=== PATIENT | male | born 1945 | race Caucasian/White ===

== ENCOUNTER 2018-02-07 17:39 | Emergency (ER) | payer MEDICARE ==
[2018-02-07] MEDS ORDERED: cloNIDine TAB* 0.1 MG PO ONE ×2 (18:44→19:51)
[2018-02-07] MEDS ORDERED: cloNIDine TAB* 0.1 MG ONE (18:50)
--- NOTE | 2018-02-07 18:51 | UC ---
General HPI - HPI Summary HPI Summary: c/o weakness and nausea for the past week with decreased apetite. Denies vomiting, abdominal pain or diarrhea, chills or vomiting. States he has been eating less because he feels queasy. He denies any changes in diet or medications. He has not taken his HTN medications yet as he takes them before bed. Also states his hands have been trembling. He states he suffers from anxiety as well. - History of Current Complaint Chief Complaint: UCDizziness Stated Complaint: CHILLS, FEVER, AND NAUSEA Time Seen by Provider: 02/07/18 18:42 Hx Obtained From: Patient, Family/Tire And L[employer] Technician Onset/Duration: Sudden Onset, Lasting Days Onset Severity: Mild Current Severity: Moderate Pain Intensity: 2 Associated Signs & Symptoms: Positive: Nausea, Weakness - Allergy/Home Medications Allergies/Adverse Reactions: Allergies Allergy/AdvReac Type Severity Reaction Status Date / Time No Known Allergies Allergy Verified 02/07/18 18:09 PMH/Surg Hx/FS Hx/Imm Hx Previously Healthy: Yes Endocrine History: Dyslipidemia Cardiovascular History: Hypertension Neurological History: Migraine - Surgical History Surgical History: Yes Surgery Procedure, Year, and Place: Hernia Repair, BPH - Family History Known Family History: Positive: Cardiac Disease, Hypertension - Social History Alcohol Use: Daily Alcohol Amount: liqer daily Substance Use Type: None Smoking Status (MU): Never Smoked Tobacco Review of Systems Constitutional: Fatigue Skin: Negative Eyes: Negative ENT: Negative Respiratory: Negative Cardiovascular: Negative Gastrointestinal: Nausea Genitourinary: Negative Motor: Other - trembling Neurovascular: Negative Musculoskeletal: Negative Neurological: Negative Psychological: Negative All Other Systems Reviewed And Are Negative: Yes Physical Exam Triage Information Reviewed: Yes Appearance: Well-Appearing, No Pain Distress, Well-Nourished Vital Signs: Initial Vital Signs Temp 99.7 F 02/07/18 18:00 Pulse 101 02/07/18 18:00 Resp 20 02/07/18 18:00 BP 210/104 02/07/18 18:00 Pulse Ox 97 02/07/18 18:00 Vital Signs Reviewed: Yes Eyes: Positive: Conjunctiva Clear ENT: Positive: Hearing grossly normal, Pharynx normal, TMs normal, Uvula midline Neck: Positive: Supple, Nontender, No Lymphadenopathy Respiratory: Positive: Chest non-tender, Lungs clear, Normal breath sounds, No respiratory distress Cardiovascular: Positive: RRR, No Murmur, Pulses Normal, Brisk Capillary Refill Abdomen Description: Positive: Nontender, No Organomegaly, Soft Bowel Sounds: Positive: Present Musculoskeletal: Positive: Strength Intact, ROM Intact, No Edema Neurological: Positive: Alert, Muscle Tone Normal, Other: - CN II-XII intact, sensory intact, gait wnl, strength 5/5x4, no ataxia, no adiadocokinesia, DTR present and symmetric Psychological: Positive: Normal Response To Family, Age Appropriate Behavior Skin Exam: Normal Course/Dx - Course Course Of Treatment: provided clonidine on site , final BP was 180/89, denied UMANA , SOB, CP, dizziness or palpitations. EKG NSR, instructed patient to continue with his usual medications for HTN. Patient responded to zofran, discussed f/u with PCP, referred to [facility] for [facility] [facility] since his PCP is in [place]. - Differential Dx - Multi-Symptom Provider Diagnoses: Nausea. HTN Discharge - Sign-Out/Discharge Documenting (check all that apply): Patient Departure All imaging exams completed and their final reports reviewed: No Studies - Discharge Plan Condition: Stable Disposition: HOME Prescriptions: Ondansetron ODT TAB* [Zofran 4 MG Odt TAB*] 4 mg PO Q8H PRN #20 tab.odt PRN Reason: Nausea Patient Education Materials: Ondansetron (By mouth), Acute Nausea and Vomiting (ED), Chronic Hypertension (ED), Tremors (ED) Referrals: [facility] [Outside] No Primary Care Phys,NOPCP [Primary Care Provider] - Additional Instructions: please follow up with primary care for evaluation of left hand tremor and nausea - Billing Disposition and Condition Condition: STABLE Disposition: Home
[2018-02-07] MEDS ORDERED: Ondansetron ODT TAB* 4 MG PO ONE (21:11)
[2018-02-07 21:28] VITALS: BP 170/98
== END 2018-02-07 21:30 | disposition home or self-care (01) ==
LOC: UCEAST 17:39
DX: R11.0 Nausea (principal); I10 Essential (primary) hypertension; F41.9 Anxiety disorder, unspecified; Z79.899 Other long term (current) drug therapy
CPT/HCPCS: 93005; 99213; A9270-GY; G0463

== ENCOUNTER 2019-04-14 12:24 | Emergency (ER) | payer MEDICARE ==
[2019-04-14 12:34] VITALS: BP 160/100
--- NOTE | 2019-04-14 12:45 | UC ---
Cardiac HPI - HPI Summary HPI Summary: Patient is a 73-year-old male who presents to the urgent care with chief complaint of retrosternal chest pain. Patient to the right arm. She denies any shortness of breath, denies any nausea vomiting or diaphoresis. He denies any feeling that he is going to pass out. He has past medical history significant for dyslipidemia hypertension. He is not taking any of his cholesterol medications due to increase in liver enzymes. He took 325 mg of aspirin this morning. The chest pain started while he was mowing a slight of exertion. Chest pain is 3 out of 10. Pain is a 8-year-old with slight exertion. - History of Current Complaint Chief Complaint: UCChestPain Stated Complaint: CHEST PAIN ARM PAIN Time Seen by Provider: 04/14/19 12:31 Hx Obtained From: Patient Onset/Duration: Sudden Onset Timing: Constant Initial Severity: Mild Current Severity: Mild Pain Intensity: 3 - Allergy/Home Medications Allergies/Adverse Reactions: Allergies Allergy/AdvReac Type Severity Reaction Status Date / Time No Known Allergies Allergy Verified 04/14/19 12:34 PMH/Surg Hx/FS Hx/Imm Hx Previously Healthy: Yes Endocrine History: Dyslipidemia Cardiovascular History: Hypertension - Surgical History Surgical History: Yes Surgery Procedure, Year, and Place: Hernia Repair, BPH - Family History Known Family History: Positive: Cardiac Disease, Hypertension - Social History Alcohol Use: Occasionally Alcohol Amount: liqer daily Substance Use Type: None Smoking Status (MU): Former Smoker When Did the Patient Quit Smoking/Using Tobacco: 30 yrs Review of Systems All Other Systems Reviewed And Are Negative: Yes Constitutional: Positive: Negative Skin: Positive: Negative Eyes: Positive: Negative ENT: Positive: Negative Respiratory: Positive: Negative Cardiovascular: Positive: Chest Pain Gastrointestinal: Positive: Negative Genitourinary: Positive: Negative Motor: Positive: Negative Neurovascular: Positive: Negative Musculoskeletal: Positive: Negative Neurological: Positive: Negative Is Patient Immunocompromised?: No Physical Exam - Summary Physical Exam Summary: VITAL SIGNS: Reviewed. GENERAL: Patient is a well developed and nourished male who is sitting comfortable in the stretcher. Patient is not in any acute respiratory distress. HEAD AND FACE: Normocephalic and atraumatic. EYES: PERRLA, EOMI x 2, EARS: Hearing grossly intact. MOUTH: Oropharynx within normal limits. NECK: Supple, trachea is midline, no adenopathy, no JVD, no carotid bruit, no c- spine tenderness, neck with full ROM. CHEST: Symmetric, no tenderness at palpation LUNGS: CTA B/L. No wheezing or crackles. CVS: RRR, S1 and S2 present, no murmurs or gallops appreciated. ABDOMEN: Soft, NT, No distention. Normal BS. EXTREMITIES: FROM in all major joints, no edema, no cyanosis or clubbing. NEURO: Alert and oriented x 3. No acute neurological deficits. Speech is normal and follows commands. SKIN: Dry and warm Triage Information Reviewed: Yes Appearance: Well-Appearing Vital Signs: Initial Vital Signs Temp 97.8 F 04/14/19 12:28 Pulse 62 04/14/19 12:28 Resp 18 04/14/19 12:28 BP 160/100 04/14/19 12:28 Pulse Ox 98 04/14/19 12:28 Vital Signs Reviewed: Yes - Assessment/Plan Course Of Treatment: Patient continues to have chest pressure. Patient already took an aspirin. The heart to score is equal to 5. Therefore, I believe that the patient should be ruled out for acute coronary syndrome in the emergency department. Patient declined ambulance transfer. The patient is hemodynamically stable. - Clinical Impression Provider Diagnosis: Chest pain Discharge ED - Sign-Out/Discharge Documenting (check all that apply): Patient Departure All imaging exams completed and their final reports reviewed: No Studies - Discharge Plan Condition: Stable Disposition: HOME-RECOMMEND TO ED Patient Education Materials: Chest Pain (ED) Referrals: Angie Wallace MD [Primary Care Provider] - Additional Instructions: Patient was recommended to go to the emergency department for further workup and management. Patient declined ambulance transfer. - Billing Disposition and Condition Condition: STABLE Disposition: Home-Recommend to ED
== END 2019-04-14 12:54 | disposition home health service (06) ==
LOC: UCEAST 12:24
DX: R07.89 Other chest pain (principal); I10 Essential (primary) hypertension; E78.5 Hyperlipidemia, unspecified; Z87.891 Personal history of nicotine dependence
CPT/HCPCS: 99202; G0463

== ENCOUNTER 2019-04-14 13:12 | Inpatient (IN) | payer MEDICARE ==
[~2019-04-14 13:12] MED LIST: NS 0.9% 1000 ML** 1,000 ML IV SCH
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
[2019-04-14 14:13] LABS: ABS Eosinophils 0.2 10^3/ul (0-0.6); ABS Monocytes 0.4 10^3/ul (0-0.8); ABS Neutrophils 5.6 10^3/ul (1.5-7.7); Eosinophil % 2.3 %; Hematocrit 43 % (42-52); Hemoglobin 14.4 g/dL (14.0-18.0); Lymphocyte % 13.7 %; Mean Corpuscular HGB Conc 34 g/dL (31-36); Mean Corpuscular Hemoglobin 32 pg (27-31); Mean Corpuscular Volume 95 fL (80-94); Mean Platelet Volume 8.4 fL (7.4-10.4); Nucleated Red Blood Cells % 0.1; Platelet Count 169 10^3/uL (150-450); Red Blood Count 4.46 10^6 /uL (4.18-5.48); Red Cell Distribution Width 16 % (10-15); White Blood Count 7.1 10^3/uL (3.5-10.8)
[2019-04-14 14:28] LABS: ALT 14 U/L (7-52); AST 19 U/L (13-39); Albumin 4.3 g/dL (3.2-5.2); Albumin/Globulin Ratio 1.5 (1-3); Alkaline Phosphatase 36 U/L (34-104); Anion Gap 11 mmol/L (2-11); Blood Urea Nitrogen 41 mg/dL (6-24); CO2 Carbon Dioxide 26 mmol/L (22-32); Calcium 9.3 mg/dL (8.6-10.3); Chloride 105 mmol/L (101-111); EGFR African American 89.1 (>60); EGFR Non-African American 73.7 (>60); Globulin 2.8 g/dL (2-4); Glucose 81 mg/dL (70-100); Sodium 142 mmol/L (135-145); Total Protein 7.1 g/dL (6.4-8.9)
[2019-04-14 14:45] LABS: INR 0.95 (0.82-1.09); Troponin I 0.15 ng/mL (<0.04)
[2019-04-14] MEDS ORDERED: Morphine 4 MG/ML VIAL (1 ml) 4 MG/ML VIAL IV ONE (14:55)
[2019-04-14] MEDS ORDERED: Ticagrelor* 90 MG TAB PO ONE (15:12)
[2019-04-14] MEDS ORDERED: Heparin DRIP 25,000 UNITS(*) 25,000 UNITS/500 ML BAG IV SCH (15:15)
[2019-04-14] MEDS ORDERED: Heparin VIAL(*) 5000 UNITS/ML VIAL (FIVE THOUSAND) IV SCH (16:00)
[2019-04-14] MEDS ORDERED: Iohexol 350* (CONTRAST) 500 ML MDV IV ONE (16:01)
[2019-04-14 16:28] LABS: Activated Partial Thrombo Time 36.7 seconds (26.0-38.0)
[2019-04-14] MEDS ORDERED: Acetaminophen TAB* 325 MG PO PRN (17:04)
[2019-04-14 17:05] LABS: Troponin I 0.21 ng/mL (<0.04)
[2019-04-14] MEDS ORDERED: Atorvastatin* 80 MG TAB PO ONE (17:08)
--- NOTE | 2019-04-14 17:21 | ECHO ---
*[facility]* [place] [address] Fax #: [phone] Transthoracic Echocardiogram Patient: Solomon Pandya : 1945 Study Date: 04/14/2019 Age: 73 Gender: M HR: 65 bpm Height: 74 in /188 cm BSA: 2.12 m^2 Weight: 189.6 lb /86.2 kg BMI: 24.4 kg/m^2 *Funeral Home Makeup Artist: Rocio Camarena [facility] *Referring Physician: * Pablo Kumar MD *Reading Physician: * Pablo Kumar MD Indications: Chest Pain, unspecified. History: Risk factors: Hypertension. Conclusions Summary: - Left ventricle: The cavity size is normal. Wall thickness is mildly increased. Systolic function is normal. The estimated ejection fraction is 55-60%. There is mid to distal left anterior descending coronary territory wall motion abnormality noted. - Right ventricle: The cavity size is normal. Systolic function is normal. - Ventricular septum: The outflow septum has a sigmoid appearance. - Left atrium: The atrium is mildly dilated. - Mitral valve: There is mild regurgitation. - Pulmonary arteries: Systolic pressure is mildly increased. Recommendations: None prior for comparison at time of interpretation Study data: Transthoracic echocardiogram. Procedure: Transthoracic echocardiography was performed. Image quality was good. Complete 2D, spectral Doppler, and color flow Doppler. Location: Emergency department. Patient status: Inpatient. Patient room number: 15. Rhythm: Normal sinus rhythm. Findings Left ventricle: The cavity size is normal. Wall thickness is mildly increased. Systolic function is normal. The estimated ejection fraction is 55-60%. Regional wall motion abnormalities: Moderate hypokinesis of the mid anteroseptal myocardium; mild hypokinesis of the apical anterior, apical inferior, apical septal, and apical myocardium. Doppler parameters are consistent with abnormal left ventricular relaxation (grade 1 diastolic dysfunction). Right ventricle: The cavity size is normal. Systolic function is normal. Ventricular septum: The outflow septum has a sigmoid appearance. Left atrium: The atrium is mildly dilated. Right atrium: The atrium is at the upper limits of normal in size. Mitral valve: The leaflets are normal thickness. There is no evidence of stenosis. There is mild regurgitation. Aortic valve: The valve is trileaflet. The leaflets are normal thickness. There is no evidence of stenosis. There is trace regurgitation. Tricuspid valve: The leaflets are normal thickness. There is no evidence of stenosis. There is trace regurgitation. Pulmonic valve: The leaflets are normal thickness. There is no evidence of stenosis. There is mild regurgitation. Aorta: Aortic root: The aortic root is mildly dilated. Ascending aorta: The ascending aorta is mildly dilated. Aortic arch: The aortic arch is mildly dilated. Pericardium: There is no significant pericardial effusion. Pulmonary arteries: The main pulmonary artery is normal-sized. Systolic pressure is mildly increased. Systemic veins: Inferior vena cava: The vessel is normal in size. There is (>= 50%) respiratory change in the IVC dimension. Measurements Left ventricle Value Ref Aortic valve Value Ref JESSICA, LAX 4.9 cm 4.2 - 5.8 Tequila diam, ED 2.2 cm ----- ESD, LAX 3.3 cm 2.5 - 4.0 Peak v, S 1.31 m/sec ----- FS, LAX 34 % 25 - 43 VTI, S 29.0 cm ----- PW, ED, LAX (H) 1.2 cm 0.6 - 1.0 Mean grad, S 3.5 mm Hg ----- EF 63 % 52 - 72 Peak grad, S 6.9 mm Hg ----- E', lat tequila, TDI (L) 7.0 cm/sec >=10.0 E/e', lat tequila, 10 Mitral valve Value Ref TDI Peak E 0.69 m/sec ----- E', med tequila, TDI 7.0 cm/sec >=7.0 Peak A 0.89 m/sec --- -- E/e', med tequila, 10 Decel time 185 ms ----- TDI Peak E/A ratio 0.78 ----- E', avg, TDI 7.0 cm/sec E/e', avg, TDI 10 <=14 Pulmonic valve Value Ref Peak v, S 0.54 m/sec ----- LVOT Value Ref Peak grad, S 1.2 mm Hg ----- Peak zhanna, S 1.26 m/sec VTI, S 29.8 cm Tricuspid valve Value Ref Peak grad, S 6 mm Hg TR peak v (H) 2.9 m/sec <=2.8 Mean grad, S 4 mm Hg Peak RV-RA grad, S 34 mm Hg ----- Ventricular septum Value Ref Aortic root Value Ref IVS, ED (H) 1.6 cm 0.6 - 1.0 Root diam 3.5 cm <4.2 Right ventricle Value Ref Ascending aorta Value Ref JESSICA, LAX 2.3 cm AAo AP diam, S 3.7 cm ----- JESSICA major ax, A4C (L) 2.9 cm 5.9 - 8.3 Pressure, S 37 mm Hg Aortic arch Value Ref Arch diam 3.6 cm ----- Left atrium Value Ref AP dim, ES (H) 4.50 cm 3.00 - Decending aorta Value Ref 4.00 Vasquez peak zhanna 0.66 m/sec ----- SI dim ES, LAX 4.5 cm ML dim, A4C 4.9 cm Pulmonary artery Value Ref Vol/bsa, ES, 2-p 27 ml/m^2 16 - 34 Pressure, S 35.9 mm Hg ----- Right atrium Value Ref Inferior vena cava Value Ref SI dim, ES 5.2 cm 3.4 - 5.3 Diam 1.6 cm ----- ML dim, ES, A4C 4.2 cm 2.6 - 4.4 Estimated RAP 3 mm Hg Legend: (L) and (H) obdulia values outside specified reference range. Prepared and electronically signed by Pablo Kumar MD 04/14/2019 17:21
--- NOTE | 2019-04-14 17:29 | CONSULT ---
Subjective Date of Service: 04/14/19 Interval History: Date of admission and consult 04/14/2019 Service: Hospitalist PCP: Dr. Reggie stubbs [place] CC: Chest pain Reason for consult: WINSOME CUETO Mr. Finley is a 73 year old man with history as below. Had chest discomfort about 11:30 this AM at relative rest 6/10 at worst pain radiating down right arm, described as pressure. Went to [facility] then ER. He has never had pain like this before. The chest discomfort resolved. He currently has 2/10 right lower arm tingling. No dyspnea, palpitations, recent syncope, bleeding, anemia, allergies or kidney issues. Patient ruled in for acute ME and is receiving appropriate treatment. His is at bedside. PMHx: HTN BPH Diet controlled diabetes Erectile dysfunction Anxiety Prior complex migraines Surgical hx: Hernia repair Fam hx: No premature CAD NKDA. 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 [employer] Remote tobacco use > 30 yrs ago No excessive alcohol use, no drugs Medications Active Medications: Acetaminophen (Tylenol Tab*) 975 mg PO Q8H PRN PRN Reason: PAIN - MILD Heparin Sodium (Porcine) (Heparin Vial(*)) 0 units IV .PER PROTOCOL PENDING S[facility] TO [facility] Last Admin: 04/14/19 16:21 Dose: 4,000 units Heparin Sodium/Dextrose (Heparin Drip 25,000 Units(*)) 25,000 units in 500 mls @ 0 mls/hr IV PER RATE [facility]; Protocol Last Admin: 04/14/19 16:22 Dose: 20 mls/hr Metoprolol Succinate (Toprol Xl Tab*) 25 mg PO DAILY [facility] Ticagrelor (Brilinta*) 90 mg PO BID [facility] Home Medications: ALPRAZolam [Alprazolam] 0.25 mg PO SEE INSTRUCTIONS PRN 04/14/19 [History Confirmed 04/14/19] Aspirin 325 mg PO DAILY 04/14/19 [History Confirmed 04/14/19] Hydrochlorothiazide TAB* [Hydrodiuril TAB*] 25 mg PO DAILY 04/14/19 [History Confirmed 04/14/19] Lisinopril 10 mg PO DAILY 04/14/19 [History Confirmed 04/14/19] Propranolol HCl [Propranolol HCl ER] 80 mg PO DAILY 04/14/19 [History Confirmed 04/14/19] Tadalafil 5 mg PO DAILY 04/14/19 [History Confirmed 04/14/19] Tamsulosin CAP* [Flomax CAP*] 0.4 mg PO DAILY 04/14/19 [History Confirmed ] Review of Systems - Measurements Intake and Output: Intake and Output Last 24 Hours 04/12/19 04/13/19 04/14/19 04/15/19 06:59 06:59 06:59 06:59 Weight 190 lb - Review of Systems Constitutional Symptoms: Negative: Weight Gain, Weight Loss Dermatology: Negative: Rash, Skin Lesions HEENT: Negative: Change in Hearing, Vertigo Eyes: Negative: Change in Vision, Double Vision Thyroid: Negative: Weight Loss, Weight Gain Pulmonary: Negative: Cough, Sputum, Hemoptysis, Wheezing, Respiratory Distress, Shortness of Breath, COPD, Asthma, Exercise Intolerance, Home Oxygen Cardiology: Positive: Chest Pain, Other Negative: Shortness of Breath, Palpitations, Swelling of Ankles, Peripheral Vascular Dis, Edema, Faintness, Syncope, Claudication, Paroxysmal Nocturnal Dyspnea, Orthopnea Gastroenterology: Negative: Abdominal Pain, Nausea, Vomiting, Anorexia, Blood in Stools, Haematemesis, Melena Genital - Urinary: Negative: Dysuria, Hematuria Musculoskeletal: Negative: Joint Pain, Joint Stiffness Endocrinology: Positive: Diabetes Negative: Obesity, Calluses, Gynecomastia Hematologic/Lymphatic: Negative: Hx Leukemia, Hx Lymphoma, Use of Anticoagulant Neurology: Positive: Migraines Negative: Change in Vision, Diplopia, Dizziness, Change in Balancing, Change in Coordination, Change in Memory, Change in Speech, Change in Sphincter Function, Change in Walking, Numbness\Paresthesiae, Unexplained Weakness, Hx of Stroke\TIA, Hx Seizures Psychiatry: Positive: Anxiety Negative: Unusual Anxiety, Suicidal Ideation Allergic/Immunologic: Negative: Hx Angioedema, Hx HIV, Immunocompromise Review of Systems Statement: All other review of systems negative, unless stated above. Objective Vital Signs: Temp Pulse Resp BP Pulse Ox 98.0 F 58 17 155/82 94 04/14/19 13:14 04/14/19 14:26 04/14/19 15:19 04/14/19 14:26 04/14/19 14:26 Appearance: nad, pleasant Ears/Nose/Mouth/Throat: Clear Oropharnyx, Mucous Membranes Moist Neck: NL Appearance and Movements; NL JVP, Trachea Midline Respiratory: Symmetrical Chest Expansion and Respiratory Effort, Clear to Auscultation Cardiovascular: NL Sounds; No Murmurs; No JVD, RRR, No Edema Abdominal: NL Sounds; No Tenderness; No Distention Extremities: No Edema Skin: No Rash or Ulcers Neurological: Alert and Oriented x 3 Laboratory Results: 04/14/19 13:49 04/14/19 13:49 INR (Anticoag Therapy) 0.95 (0.82-1.09) 04/14/19 13:49 APTT 35.7 seconds (26.0-38.0) 04/14/19 16:21 Total Bilirubin 0.40 mg/dL (0.2-1.0) 04/14/19 13:49 AST 19 U/L (13-39) 04/14/19 13:49 ALT 14 U/L (7-52) 04/14/19 13:49 Alkaline Phosphatase 36 U/L (34-104) 04/14/19 13:49 Total Protein 7.1 g/dL (6.4-8.9) 04/14/19 13:49 Albumin 4.3 g/dL (3.2-5.2) 04/14/19 13:49 Globulin 2.8 g/dL (2-4) 04/14/19 13:49 Albumin/Globulin Ratio 1.5 (1-3) 04/14/19 13:49 04/14/19 04/14/19 13:49 16:21 Troponin I 0.15 H* 0.21 H* Diagnostic Imaging: Exam Date: 04/14/19 CTA CHEST INDICATION: Chest pain THORACIC AORTA: The ascending thoracic aorta is ectatic measuring up to 4.1 cm in transverse dimension. IMPRESSION: 1. NO EVIDENCE FOR PULMONARY EMBOLISM. 2. ECTASIA OF THE ASCENDING THORACIC AORTA. 2. 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 Transthoracic Echocardiogram Study Date: 04/14/2019 Summary: - Left ventricle: The cavity size is normal. Wall thickness is mildly increased. Systolic function is normal. The estimated ejection fraction is 55-60%. There is mid to distal left anterior descending coronary territory wall motion abnormality noted. - Right ventricle: The cavity size is normal. Systolic function is normal. - Ventricular septum: The outflow septum has a sigmoid appearance. - Left atrium: The atrium is mildly dilated. - Mitral valve: There is mild regurgitation. - Pulmonary arteries: Systolic pressure is mildly increased. EKG Data: EKG admission 04/14/2019: NSR 61 bpm, 1 avb with new TWI lead III as compared to 01/2018 Assessment/Plan 73 year old man with diet controlled DM, HTN, BPH, remote tobacco use, complicated migraines admitted with acute type 1 ME, LVEF overall normal with no CHF, hemodynamic instability, arrhythmia or recurrent chest discomfort - Aspirin 81 mg po daily (ordered) - Brilinta 90 mg po bid after 180 mg loading dose (ordered) - Heparin gtt - Lipitor 80 mg po daily (ordered) - Change propranolol to metoprolol 25 mg po tid tartrate for now (ordered) - Hold indu/hctz for now, IVF s/p contrast and BMP tomorrow (ordered) - Repeat EKG and trend enzymes to peak - check hgba1c and lipids (ordered) - Avoid further narcotic use for treatment of angina - Cardiac catheterization with intent for revascularization indicated and recommended. Risks, benefits and alternatives discussed and patient wishes to proceed. Tentative plan for 04/15/[address] Sampson (Discussed in person) as long as patient remains clinically stable Thank you for allowing me to participate in the cardiovascular care of this patient. Please do not hesitate to contact me with questions or concerns.
[2019-04-14] MEDS ORDERED: NS 0.9% 1000 ML** 1,000 ML IV SCH (17:45)
[2019-04-14] MEDS ORDERED: Metoprolol Succinate XL TAB* 25 MG PO SCH (18:00)
--- NOTE | 2019-04-14 18:40 | HP ---
History of Present Illness - History of Present Illness Reason for Visit: Chest pain for 6 hours History of Present Illness: Mr. Finley is a 73 year old man with history of HTN, previous hyperlipidemia, BPH, presented with chest pain starting at 11:30am today when he was resting. He described as "heavy things putting on my chest", radiating down right arm, pain score about 6/10. He recalled the pain lasted about an hour , the arm pain lasted about 6 hours, and just resolved when I met him in ER. He has never had pain like this before, it was a normal day for him until this happened. He is a physically active person with no dyspnea on hiking or brisk walking. No dyspnea, PND, palpitations, recent syncope, bleeding, anemia. in ED, patient was found to have first degree AVB with new TWI in lead III when compared with 01/2018. Tropnin was elevated at 0.15. TTE showing EF 55-60% with LAD territory wall motion abnormality. Cardiology consult was called. - Past Medical History Past Medical History: 1. HTN 2. history of HLD, was on statin, stopped 1 year ago as cholesterol controlled 3. BPH 4. Diet controlled diabetes 5. Erectile dysfunction 6. Anxiety 7. Prior complex migraines - Past Surgical History Past Surgical History: 1. Hernia repair - Past Family History Past Family History: Mother has DM. No other medical problems in his parents and siblings other than this. No heart attack history in family. 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 Remote tobacco smoking 30 years ago, denied drug use, social alcohol drinker. Last drinker was 1 month ago during a gathering. Review of Systems - Review of Systems Constitutional: Negative: Fever, Chills, Sweats, Weakness, Malaise, Other Eyes: Negative: Pain, Vision Change, Conjunctivae Inflammation, Eyelid Inflammation, Redness, Other ENT: Negative: Ear Pain, Ear Discharge, Nose Pain, Nose Discharge, Nose Congestion, Mouth Pain, Mouth Swelling, Throat Pain, Throat Swelling, Other Respiratory: Negative: Cough, Dry, Shortness of Breath, Hemoptysis, SOB with Excertion, Pleuritic Pain, Sputum, Wheezing Cardiovascular: Positive: Chest Pain Gastrointestinal: Negative: Nausea, Vomiting, Abdominal Pain, Diarrhea, Constipation, Melena, Hematochezia, Other Genitourinary: Negative: Dysuria, Frequency, Incontinence, Hematuria, Retention , Other Musculoskeletal: Negative: Neck Pain, Shoulder Pain, Arm Pain, Back Pain, Hand Pain, Leg Pain, Foot Pain, Other Skin: Negative: Rash, Lesions, Richard, Bruising, Other Neurological: Negative: Weakness, Numbness, Incoordination, Change in Speech, Confusion, Seizures, Other - Medications/Allergies Allergies/Adverse Reactions: Allergies Allergy/AdvReac Type Severity Reaction Status Date / Time No Known Allergies Allergy Verified 04/14/19 12:34 Medications: Home Medication Aspirin (Aspirin 81 Mg Chew Tab*) 81 mg PO DAILY LEIGH Alprazolam 0.25mg po daily prn Hydrochlorathiazide 25mg po daily lisinopril 10mg po daily Propranolol 80mg po daily Tadalafil 5mg po daily Tamsulosin 0.4mg po daily Exam Vital Signs: Vital Signs (72 hours) 04/14/19 04/14/19 04/14/19 13:14 13:46 13:56 Temperature 98.0 F Pulse Rate 63 60 64 Respiratory 16 33 15 Rate Blood Pressure 114/87 152/90 (mmHg) O2 Sat by Pulse 100 98 98 Oximetry 04/14/19 04/14/19 04/14/19 14:00 14:26 15:19 Temperature Pulse Rate 59 58 Respiratory 6 12 17 Rate Blood Pressure 155/82 (mmHg) O2 Sat by Pulse 100 94 Oximetry 04/14/19 18:09 Temperature 98.6 F Pulse Rate 73 Respiratory 19 Rate Blood Pressure 140/85 (mmHg) O2 Sat by Pulse 99 Oximetry Exam: Appearance: NAD, pleasant, sitting up Ears/Nose/Mouth/Throat: Clear Oropharnyx, Mucous Membranes Moist Neck: NL Appearance and Movements; NL JVP, Trachea Midline Respiratory: Symmetrical Chest Expansion and Respiratory Effort, Clear to Auscultation Cardiovascular: NL Sounds; No Murmurs; No JVD, RRR, No Edema Abdominal: NL Sounds; No Tenderness; No Distention Extremities: No Edema Skin: No Rash or Ulcers Neurological: Alert and Oriented x 3 Assessment/Plan - Assessment/Plan Assessment: 73 y/o male with history of HTN, previous HLD,diet controlled DM, presented to ED with acute onset of chest heaviness, found to have elevated troponin and new EKG changes, LAD territory wall motion abnormality on echocardiogram, which all consistent with the diagnosis of Type 1 HI (NSTEMI). He has no signs and symptoms of cardiac decompensation, arrythmia, recurrent chest pain, hemodynamic instability at this moment. We will admit him to [facility]. Plan: 1. NSTMI - type 1 HI - DARON score 4 which indicates 20% risk of 14 day mortality, he warrants early revasculization which senior care assistant will perform tomorrow likely - antiplt: Brilinta 180mg loading dose was given in ED, will follow with 90mg bid; will continue aspirin 80mg daily - antithrombotic: heparin drip was started - lipitor po 80mg started, will check fasting lipid tomorrow - metoprolol 25mg po tid was started - hold off ACEI for now as per senior care assistant recommendation - Cardiac cath tomorrow, npo overnight, iv fluid pre and post cardiac cath - will continue to trend trop and ekg overnight - check HbA1c, lipid, CBC, BMP tomorrow morning - if recurrent chest pain, arrhythmia, hemodynamically instable, call provider for assessment and need early intervention 2. HTN - BP borderline high at 152/90mmhg, will watch for now - target 150/90mmhg 3. DVT prophylaxis - no need since he is on iv heparin drip - Attestation Documenting Resident: Heidi Poole Supervising Physician: Dia Suarez Attestation: This service has been performed in part by a resident under the direction of a teaching physician.I, Dia Suarez, performed the service, or was physically present during the critical, or hairston portions of the service, furnished by the resident. I participated in the management of the patient.
[2019-04-14] MEDS: Ticagrelor* 90 MG TAB PO SCH (20:04)
[2019-04-14] MEDS: Metoprolol Tartrate TAB* 25 MG PO SCH (20:04)
[2019-04-14 20:50] LABS: Troponin I 0.37 ng/mL (<0.04)
[2019-04-15 04:29] LABS: Hematocrit 41 % (42-52); Hemoglobin 14.1 g/dL (14.0-18.0); Mean Corpuscular HGB Conc 34 g/dL (31-36); Mean Corpuscular Hemoglobin 32 pg (27-31); Mean Corpuscular Volume 94 fL (80-94); Mean Platelet Volume 8.6 fL (7.4-10.4); Platelet Count 173 10^3/uL (150-450); Red Blood Count 4.41 10^6 /uL (4.18-5.48); Red Cell Distribution Width 15 % (10-15); White Blood Count 7.2 10^3/uL (3.5-10.8)
[2019-04-15 04:32] LABS: Troponin I 0.52 ng/mL (<0.04)
[2019-04-15 04:44] LABS: Anion Gap 10 mmol/L (2-11); BUN/Creatinine Ratio 39.3 (8-20); Blood Urea Nitrogen 42 mg/dL (6-24); CO2 Carbon Dioxide 25 mmol/L (22-32); Calcium 8.8 mg/dL (8.6-10.3); Chloride 99 mmol/L (101-111); Cholesterol 198 mg/dL; EGFR African American 82.4 (>60); EGFR Non-African American 68.1 (>60); Glucose 150 mg/dL (70-100); HDL Cholesterol 67.3 mg/dL; LDL Cholesterol 105 mg/dL; Potassium 3.7 mmol/L (3.5-5.0); Sodium 134 mmol/L (135-145); Triglycerides 129 mg/dL
[2019-04-15] MEDS: Metoprolol Tartrate TAB* 25 MG PO SCH (04:52)
[2019-04-15] MEDS: Aspirin 81 mg CHEW TAB* 81 MG TAB.CHEW PO SCH (07:46)
[2019-04-15] MEDS: Ticagrelor* 90 MG TAB PO SCH ×2 (07:47→20:49)
[2019-04-15] MEDS ORDERED: Potassium Chlor TAB* 20 MEQ TAB.ER PO ONE (07:50)
--- NOTE | 2019-04-15 07:54 | PN ---
Subjective Date of Service: 04/15/19 Interval History: f/u nstemi no chest or arm pain has some nasal congestion - ? uri vs. allergies will observe tele no arrhythmias Medications Active Medications: Acetaminophen (Tylenol Tab*) 975 mg PO Q8H PRN PRN Reason: PAIN - MILD Aspirin (Aspirin 81 Mg Chew Tab*) 81 mg PO DAILY [facility] Last Admin: 04/15/19 07:46 Dose: 81 mg Atorvastatin Calcium (Lipitor*) 80 mg PO 2100 LEIGH Heparin Sodium (Porcine) (Heparin Vial(*)) 0 units IV .PER PROTOCOL [facility] Last Admin: 04/14/19 16:21 Dose: 4,000 units Heparin Sodium/Dextrose (Heparin Drip 25,000 Units(*)) 25,000 units in 500 mls @ 0 mls/hr IV PER RATE [facility]; Protocol Last Admin: 04/14/19 16:22 Dose: 20 mls/hr Sodium Chloride (Ns 0.9% 1000 Ml) 1,000 mls @ 75 mls/hr IV PER RATE [facility] Last Admin: 04/14/19 21:47 Dose: 75 mls/hr Metoprolol Tartrate (Lopressor Tab*) 25 mg PO Q8H [facility] Last Admin: 04/15/19 04:52 Dose: 25 mg Potassium Chloride (Klor Con Er Tab*) 40 meq PO ONCE ONE Stop: 04/15/19 07:51 Ticagrelor (Brilinta*) 90 mg PO BID [facility] Last Admin: 04/15/19 07:47 Dose: 90 mg Objective Vital Signs: Temp Pulse Resp BP Pulse Ox 98.2 F 69 18 134/82 98 04/15/19 03:15 04/15/19 03:15 04/15/19 03:15 04/15/19 03:15 04/15/19 03:15 Oxygen Devices in Use Now: None Appearance: nad, pleasant Ears/Nose/Mouth/Throat: Clear Oropharnyx, Mucous Membranes Moist Neck: NL Appearance and Movements; NL JVP, Trachea Midline Respiratory: Symmetrical Chest Expansion and Respiratory Effort, Clear to Auscultation Cardiovascular: NL Sounds; No Murmurs; No JVD, RRR, No Edema Abdominal: NL Sounds; No Tenderness; No Distention Extremities: No Edema Skin: No Rash or Ulcers Neurological: Alert and Oriented x 3 Laboratory Results: 04/15/19 04:16 04/15/19 04:16 INR (Anticoag Therapy) 0.95 (0.82-1.09) 04/14/19 13:49 APTT 60.4 seconds (26.0-38.0) H 04/15/19 04:16 Total Bilirubin 0.40 mg/dL (0.2-1.0) 04/14/19 13:49 AST 19 U/L (13-39) 04/14/19 13:49 ALT 14 U/L (7-52) 04/14/19 13:49 Alkaline Phosphatase 36 U/L (34-104) 04/14/19 13:49 Total Protein 7.1 g/dL (6.4-8.9) 04/14/19 13:49 Albumin 4.3 g/dL (3.2-5.2) 04/14/19 13:49 Globulin 2.8 g/dL (2-4) 04/14/19 13:49 Albumin/Globulin Ratio 1.5 (1-3) 04/14/19 13:49 Triglycerides 129 mg/dL 04/15/19 04:16 Cholesterol 198 mg/dL 04/15/19 04:16 LDL Cholesterol 105 mg/dL 04/15/19 04:16 HDL Cholesterol 67.3 mg/dL 04/15/19 04:16 04/14/19 04/14/19 04/14/19 13:49 16:21 20:14 Troponin I 0.15 H* 0.21 H* 0.37 H* 04/15/19 04/15/19 04/15/19 00:23 03:26 04:16 Troponin I 0.50 H* 0.52 H* 0.50 H* Diagnostic Imaging: Exam Date: 04/14/19 CTA CHEST INDICATION: Chest pain THORACIC AORTA: The ascending thoracic aorta is ectatic measuring up to 4.1 cm in transverse dimension. IMPRESSION: 1. NO EVIDENCE FOR PULMONARY EMBOLISM. 2. ECTASIA OF THE ASCENDING THORACIC AORTA. 2. 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 Transthoracic Echocardiogram Study Date: 04/14/2019 Summary: - Left ventricle: The cavity size is normal. Wall thickness is mildly increased. Systolic function is normal. The estimated ejection fraction is 55-60%. There is mid to distal left anterior descending coronary territory wall motion abnormality noted. - Right ventricle: The cavity size is normal. Systolic function is normal. - Ventricular septum: The outflow septum has a sigmoid appearance. - Left atrium: The atrium is mildly dilated. - Mitral valve: There is mild regurgitation. - Pulmonary arteries: Systolic pressure is mildly increased. EKG Data: EKG admission 04/14/2019: NSR 61 bpm, 1 avb with new TWI lead III as compared to 01/2018 Assessment/Plan 73 year old man with diet controlled DM, HTN, BPH, remote tobacco use, complicated migraines admitted with acute type 1 MD, LVEF overall normal with mid to distal LAD WMA. No CHF, hemodynamic instability, arrhythmia or recurrent chest discomfort, peak cTnI 0.52 - Aspirin 81 mg po daily - Brilinta 90 mg po bid - Heparin gtt - Lipitor 80 mg po daily - Change propranolol to metoprolol 25 mg po tid tartrate for now not opposed to changing back to propranolol at some point - Hold indu/hctz for now, continue IVF s/p contrast. give 40 meq PO K x 1 ( ordered) - hgba1c pending - Avoid further narcotic use for treatment of angina - Cardiac catheterization/revasularization with Dr. Sampson today Thank you for allowing me to participate in the cardiovascular care of this patient. Please do not hesitate to contact me with questions or concerns.
[2019-04-15] MEDS ORDERED: Heparin 2 UNITS/ML IVPREMIX* 3,000 ML IV ONE (08:19)
[2019-04-15] MEDS ORDERED: Lidocaine 1% INJ* 10 MG/ML 30 ML SDV ONE (08:19)
[2019-04-15] MEDS ORDERED: Iohexol 350 (CONTRAST) 200 ML MDV IV ONE ×2 (08:29→09:52)
[2019-04-15] MEDS ORDERED: nitroGLYCERIN DRIP* 25,000 MCG/250 ML BTL ONE (08:46)
[2019-04-15] MEDS ORDERED: fentaNYL* 50 MCG/ML 2 ML VIAL (100 MCG VIAL) ONE (08:46)
[2019-04-15] MEDS ORDERED: VERAPAMIL 2.5 MG/ML 2 ML VIAL ** 5 mg/2 ml ONE (08:46)
[2019-04-15] MEDS ORDERED: Heparin(*) 1000 UNIT/ML 10 ML VIAL CATH LAB IV ONE (08:46)
[2019-04-15] MEDS ORDERED: Midazolam* 1 MG/ML 5 ML VIAL (5 MG) ONE (08:46)
[2019-04-15] MEDS ORDERED: Bivalirudin(*) 250 MG VIAL ONE (09:28)
[2019-04-15] MEDS ORDERED: Nitroglycerin TAB 0.4 MG* 0.4 MG TAB SL PRN (10:25)
[2019-04-15] MEDS: amLODIPine TAB* 5 MG PO SCH (11:20)
--- NOTE | 2019-04-15 13:06 | CATH ---
CC: Dr. Angie Wallace; Dr. Pablo Kumar CARDIAC CATHETERIZATION AND INTERVENTIONAL REPORT: DATE OF PROCEDURE: 04/15/19 INDICATION FOR PROCEDURE: Asked by Dr. Pablo Kumar, the patient's primary chief lending officer in the hospital, to perform coronary arteriography and possible coronary intervention in light of presentation with non-STEMI with chest discomfort. PROCEDURE: Coronary arteriography, primary stenting of the mid LAD with a 3.0 x 30 mm long Orsiro drug-eluting stent post dilated to 3.2 to 3.3 mm. CONSENT: The patient was interviewed and examined on the floor of the hospital , where the risks and benefits were explained. He understood them and wished to proceed. APPROACHED UTILIZED: Of note, on the floor of the hospital, the right radial artery was assessed by ultrasound imaging and found to be acceptable for the approach, and as such, this was the approach taken. PRE-CARDIAC CATHETERIZATION LABORATORY RESULTS: Hemoglobin and hematocrit of 14.1 and 41 with a platelet count of 173,000. BUN and creatinine of 42 and 1.07 , sodium 134, potassium 3.7, chloride 99, bicarb 25. INR was 0.95. Troponin was 0.5. EQUIPMENT UTILIZED: 1. Right radial artery sheath was a 6-[place] Glidesheath slender. 2. Diagnostic coronary catheter was a 5-[place] TIG4 catheter. 3. Diagnostic wires utilized - a 260 length Najera curved guidewire for exchange catheters and a 145 cm length Wholey wire to obtain access to the ascending aorta. 4. Guide catheter utilized was a 6-[place] Heartrail III left coronary 3.5 curve catheter. 5. Support catheter utilized: A 6-[place] GuideLiner V3 catheter. 6. Interventional guidewire was a 190 length BMW guidewire. 7. The stent utilized was a 3.0 x 30 mm long Orsiro drug-eluting stent. 8. Post stent deployment balloon catheter was a 3.25 x 12 mm long NC Emerge balloon. 9. Closure device utilized - a regular length Vasc Band closure device by [employer]. DESCRIPTION OF PROCEDURE: The patient was brought to the cardiovascular laboratory where a formal time-out was performed. He was prepped and draped in a sterile fashion and under ultrasound guidance, the right radial artery was cannulated and the sheath was placed. A Wholey wire was utilized to negotiate the subclavian artery into the innominate artery into the aorta. Diagnostic coronary arteriography was performed. Following this, the decision was made to intervene into the left anterior descending artery. ACT was checked at the beginning of the case and found to be subtherapeutic and multiple boluses of heparin were given and ACT was rechecked multiple times in order to give appropriate heparin for the intervention. Guiding views were then obtained followed by the interventional guidewire placed. Initial attempts to primary stent were unsuccessful with just the guide catheter, and as such, a support catheter utilizing the GuideLiner catheter was utilized and the stent was able to be delivered without significant difficulty. Post stent deployment balloon inflations were made with the NC Emerge balloon. Following this, the artery was assessed in multiple views and eventually with the wire removed. Of note, nitroglycerin intracoronary was given multiple times in light of question of spasm or plaque shift into a small caliber mid diagonal branch. DARON 3 flow was noted in all vessels including the diagonal branch as well. At the end of the case, the catheter and sheath were removed and hemostasis was obtained with a Vasc Band. The total contrast used was 165 cc of omnipaque contrast. The radiation exposure included 13.1 minutes of fluoro time. The air kerma radiation was 1407 milligray. The DAP radiation was 8039 microgray per meter squared. RESULTS: CORONARY ARTERIOGRAPHY: A. Left coronary artery: 1. Left main. The left main was widely patent with no significant narrowing seen. 2. Left anterior descending artery. The proximal portion of the left anterior descending artery had calcification extending into the mid portion of it. There were very mild luminal irregularities in the most proximal area. The mid portion then tapered with a hazy 80% (in its worst view) lesion between the second and third diagonal branch. Just past the third diagonal branch, there was an area of 45% to 50% narrowing seen as well. The continuation of the LAD went to the apical region onto the distal inferior wall and a distal narrowing of 35% was noted. The diagonal branches did not have any significant narrowing. The ostium of the LAD had a 20% narrowing seen. 3. Circumflex artery - a nondominant vessel supplying a very thin first obtuse marginal branch followed by a large size mid obtuse marginal branch, which bifurcated into superior and inferior branch. The inferior branch had a mid lesion of approximately 55% to 60%. B. Right coronary artery. The right coronary artery was a dominant vessel supplying the PDA and multiple acute marginal branches as well as multiple posterior left ventricular branches. There was calcium noted in the wall of the aorta at the ostium with perhaps a 10% to 15% narrowing in the ostium. The right coronary artery itself had no significant underlying coronary artery disease. INTERVENTION INTO MID LEFT ANTERIOR DESCENDING ARTERY: Successful intervention into the mid LAD with reduction of a hazy 80% blockage to less than 5% DARON 3 flow in the LAD and no dissection seen. Of note , there appeared to be either plaque shift or spasm to the second diagonal branch, which showed very mild improvement with nitroglycerin. The diagonal branch is a small caliber vessel. The residual narrowing was approximately 70%. OVERALL ASSESSMENT: Successful intervention into hazy mid LAD lesion with excellent result in narrowing of a small caliber second diagonal branch. Of note, the diagonal branch subtends a small area of myocardium and appeared to be mildly improved with nitroglycerin and at this point, I would treat that medically and we will add medication for vasodilatation and antispasm. The circumflex lower branch of the mid obtuse marginal branch has a moderate lesion as mentioned above. Aggressive risk factor management with high-dose statins as well as dual antiplatelet therapy at this point for ideally a year would be appropriate given the acute coronary syndrome presentation. This information as mentioned was shared with the patient's primary chief lending officer, Dr. Pablo Kumar, as well as with the medical records assistant taking care of the patient, Dr. Poole. [id number]/[facility] #: [id number] MAIKEL
[2019-04-15] MEDS ORDERED: NS 0.9% 1000 ML** 2,000 ML IV ONE (13:20)
[2019-04-15] MEDS ORDERED: amLODIPine TAB* 5 MG PO ONE (13:22)
[2019-04-15] MEDS: Propranolol LA CAP* 80 MG PO SCH (14:28)
[2019-04-15] MEDS ORDERED: NS 0.9% 1000 ML** 1,000 ML IV ONE (15:00)
[2019-04-15] MEDS: FLUTICASONE 50 MCG INTRANASAL PRN (16:19)
--- NOTE | 2019-04-15 16:51 | PN ---
Subjective Date of Service: 04/15/19 Interval History: Patient was seen after cardiac cath. He was sitting on the chair, no complain of chest pain, palpitation, lightheadedness. No bleeding noticed. Objective Active Medications: Acetaminophen (Tylenol Tab*) 975 mg PO Q8H PRN PRN Reason: PAIN - MILD Amlodipine Besylate (Norvasc Tab*) 2.5 mg PO DAILY [facility] Last Admin: 04/15/19 11:20 Dose: 2.5 mg Aspirin (Aspirin 81 Mg Chew Tab*) 81 mg PO DAILY [facility] Last Admin: 04/15/19 07:46 Dose: 81 mg Atorvastatin Calcium (Lipitor*) 80 mg PO 2100 [facility] Fluticasone Propionate (Flonase Nasal [place] 50mcg*) 1 spray INTRANASAL DAILY PRN PRN Reason: DRY ITCHY NOSE Last Admin: 04/15/19 16:19 Dose: 1 spray Sodium Chloride (Ns 0.9% 1000 Ml) 2,000 mls @ 500 mls/hr IV .PER RATE ONE Stop: 04/15/19 17:19 Last Admin: 04/15/19 14:26 Dose: Not Given Sodium Chloride (Ns 0.9% 1000 Ml) 1,000 mls @ 100 mls/hr IV ONCE ONE Stop: 04/16/19 00:59 Last Admin: 04/15/19 11:00 Dose: 100 mls/hr Nitroglycerin (Nitroglycerin Tab 0.4 Mg*) 0.4 mg SL Q5M PRN PRN Reason: ANGINA Propranolol HCl (Inderal [place]*) 80 mg PO DAILY [facility] Last Admin: 04/15/19 14:28 Dose: 80 mg Ticagrelor (Brilinta*) 90 mg PO BID [facility] Last Admin: 04/15/19 07:47 Dose: 90 mg Vital Signs - 8 hr 04/15/19 04/15/19 04/15/19 10:32 10:33 10:39 Temperature 98.1 F Pulse Rate 61 63 62 Respiratory 11 21 Rate Blood Pressure 140/88 140/88 (mmHg) O2 Sat by Pulse 98 98 99 Oximetry 04/15/19 04/15/19 04/15/19 10:45 11:00 11:01 Temperature Pulse Rate 61 59 57 Respiratory 17 16 22 Rate Blood Pressure 134/90 156/86 (mmHg) O2 Sat by Pulse 98 98 98 Oximetry 04/15/19 04/15/19 04/15/19 11:15 11:30 11:46 Temperature Pulse Rate 64 60 61 Respiratory 17 18 27 Rate Blood Pressure 149/94 149/90 129/99 (mmHg) O2 Sat by Pulse 98 99 98 Oximetry 04/15/19 04/15/19 04/15/19 12:00 12:01 12:15 Temperature Pulse Rate 58 59 59 Respiratory 17 20 17 Rate Blood Pressure 134/89 145/85 (mmHg) O2 Sat by Pulse 98 97 99 Oximetry 04/15/19 04/15/19 04/15/19 12:30 12:46 13:00 Temperature Pulse Rate 60 62 63 Respiratory 20 15 17 Rate Blood Pressure 143/87 141/84 (mmHg) O2 Sat by Pulse 99 99 98 Oximetry 04/15/19 04/15/19 04/15/19 13:16 13:45 14:00 Temperature Pulse Rate 71 69 66 Respiratory 21 13 13 Rate Blood Pressure 124/99 146/93 134/86 (mmHg) O2 Sat by Pulse 99 97 95 Oximetry 04/15/19 04/15/19 04/15/19 14:15 14:30 14:47 Temperature Pulse Rate 68 70 68 Respiratory 23 16 22 Rate Blood Pressure 127/82 145/96 109/89 (mmHg) O2 Sat by Pulse 94 97 98 Oximetry 04/15/19 04/15/19 04/15/19 15:00 15:15 15:30 Temperature Pulse Rate 66 64 63 Respiratory 17 18 16 Rate Blood Pressure 136/88 114/54 144/87 (mmHg) O2 Sat by Pulse 99 97 98 Oximetry Oxygen Devices in Use Now: None Exam: Appearance: NAD, sitting comfortably on the chair. Ears/Nose/Mouth/Throat: Clear Oropharnyx, Mucous Membranes Moist Neck: NL Appearance and Movements; NL JVP, Trachea Midline Respiratory: Symmetrical Chest Expansion and Respiratory Effort, Clear to Auscultation Cardiovascular: NL Sounds; No Murmurs; No JVD, RRR, No Edema Abdominal: NL Sounds; No Tenderness; No Distention Extremities: No Edema Skin: No Rash or Ulcers Neurological: Alert and Oriented x 3 Result Diagrams: 04/15/19 04:16 04/15/19 04:16 Assess/Plan/Problems-Billing Assessment: 73 y/o male with history of HTN, previous HLD,diet controlled DM, presented to ED with acute onset of chest heaviness, found to have type I DC. - Patient Problems (1) NSTEMI (non-ST elevated myocardial infarction) Current Visit: Yes Status: Acute Code(s): I21.4 - NON-ST ELEVATION (NSTEMI) MYOCARDIAL INFARCTION SNOMED Code(s): 59032042 Comment: - T1 DC - cardiac revasculization performed with stenting of mid LAD with a drug eluting stent placed. - IV fluid after cath today to prevent contrast induced KATHERINE - on DAPT with aspirin and Ticagrelor, will need 1 year - on high intensity statin - added amlodipine for coronary spasm detected in cath - will follow up with gun synchronizer outpatient. (2) HTN (hypertension) Current Visit: Yes Status: Acute Code(s): I10 - ESSENTIAL (PRIMARY) HYPERTENSION SNOMED Code(s): 12792438 Comment: - on propranol and amlodipine now - watch bp (3) DVT prophylaxis Current Visit: Yes Status: Acute Code(s): Z29.9 - ENCOUNTER FOR PROPHYLACTIC MEASURES, UNSPECIFIED SNOMED Code(s): 970316037 Comment: - sc Lovenox Status and Disposition: Inpatient Medicine.
[2019-04-15] MEDS ORDERED: Enoxaparin(*) 40 MG/0.4 ML SYR SUBCUT SCH (18:00)
[2019-04-15] MEDS ORDERED: Atorvastatin* 80 MG TAB PO SCH (21:00)
[2019-04-16] MEDS: FLUTICASONE 50 MCG INTRANASAL PRN (03:12)
[2019-04-16 04:54] LABS: ABS Eosinophils 0.1 10^3/ul (0-0.6); ABS Lymphocytes 0.6 10^3/ul (1.0-4.8); ABS Monocytes 0.6 10^3/ul (0-0.8); ABS Neutrophils 3.9 10^3/ul (1.5-7.7); Hematocrit 38 % (42-52); Hemoglobin 12.8 g/dL (14.0-18.0); Mean Corpuscular HGB Conc 34 g/dL (31-36); Mean Corpuscular Hemoglobin 32 pg (27-31); Mean Corpuscular Volume 95 fL (80-94); Mean Platelet Volume 8.5 fL (7.4-10.4); Platelet Count 139 10^3/uL (150-450); Red Cell Distribution Width 15 % (10-15); White Blood Count 5.2 10^3/uL (3.5-10.8)
[2019-04-16 05:09] LABS: Anion Gap 8 mmol/L (2-11); BUN/Creatinine Ratio 26.8 (8-20); Blood Urea Nitrogen 26 mg/dL (6-24); CO2 Carbon Dioxide 24 mmol/L (22-32); Calcium 8.6 mg/dL (8.6-10.3); Chloride 107 mmol/L (101-111); EGFR African American 92.3 (>60); EGFR Non-African American 76.3 (>60); Glucose 116 mg/dL (70-100); Potassium 3.5 mmol/L (3.5-5.0); Sodium 139 mmol/L (135-145)
[2019-04-16] MEDS ORDERED: Influenza VAC *QUAD* 2019-20* 0.5 ML SYRINGE IM ONE (09:00)
[2019-04-16] MEDS ORDERED: Lisinopril TAB* 10 MG PO SCH (09:00)
[2019-04-16 09:16] LABS: Creatine Kinase 72 U/L (10-223)
[2019-04-16] MEDS: Aspirin 81 mg CHEW TAB* 81 MG TAB.CHEW PO SCH (09:36)
[2019-04-16] MEDS: Ticagrelor* 90 MG TAB PO SCH (09:36)
[2019-04-16] MEDS: Propranolol LA CAP* 80 MG PO SCH (09:36)
[2019-04-16] MEDS: amLODIPine TAB* 5 MG PO SCH (09:36)
[2019-04-16 09:55] LABS: Troponin I 1.13 ng/mL (<0.04)
[2019-04-16 10:33] LABS: CKMB ng/mL 6.7 ng/mL (0.6-6.3)
--- NOTE | 2019-04-16 12:54 | PN ---
Subjective Date of Service: 04/16/19 Interval History: Asymptomatic overnight, no chest pain, no palpitation, noted one episode of tachycardia with HR 100-110 overnight, but of note pt missed propranolol dose yesterday due to procedure. Repeat EKG this morning showing TWI over V1-V6, trop elevated while CKMB only midly elevated. Objective Active Medications: Acetaminophen (Tylenol Tab*) 975 mg PO Q8H PRN PRN Reason: PAIN - MILD Amlodipine Besylate (Norvasc Tab*) 5 mg PO DAILY [facility] Aspirin (Aspirin 81 Mg Chew Tab*) 81 mg PO DAILY [facility] Last Admin: 04/16/19 09:36 Dose: 81 mg Atorvastatin Calcium (Lipitor*) 80 mg PO 2100 [facility] Last Admin: 04/15/19 20:49 Dose: 80 mg Enoxaparin Sodium (Lovenox(*)) 40 mg SUBCUT Q24H [facility] Last Admin: 04/15/19 18:06 Dose: 40 mg Fluticasone Propionate (Flonase Nasal [place] 50mcg*) 1 spray INTRANASAL DAILY PRN PRN Reason: DRY ITCHY NOSE Last Admin: 04/16/19 03:12 Dose: 1 spray Lisinopril (Prinivil Tab*) 10 mg PO DAILY [facility] Last Admin: 04/16/19 09:36 Dose: 10 mg Nitroglycerin (Nitroglycerin Tab 0.4 Mg*) 0.4 mg SL Q5M PRN PRN Reason: ANGINA Propranolol HCl (Inderal La Cap*) 80 mg PO DAILY [facility] Last Admin: 04/16/19 09:36 Dose: 80 mg Ticagrelor (Brilinta*) 90 mg PO BID [facility] Last Admin: 04/16/19 09:36 Dose: 90 mg Vital Signs - 8 hr 04/16/19 04/16/19 04/16/19 05:00 06:00 06:01 Temperature Pulse Rate 56 73 72 Respiratory 4 19 16 Rate Blood Pressure 123/71 146/85 (mmHg) O2 Sat by Pulse 96 98 99 Oximetry 04/16/19 04/16/19 04/16/19 07:00 07:49 08:00 Temperature 98 F Pulse Rate 59 59 Respiratory 16 21 Rate Blood Pressure 132/79 159/87 (mmHg) O2 Sat by Pulse 97 94 Oximetry 10/26/19 10/26/19 10/26/19 09:00 10:00 10:32 Temperature Pulse Rate 66 64 Respiratory 18 20 21 Rate Blood Pressure 139/82 155/92 (mmHg) O2 Sat by Pulse 98 98 Oximetry 04/16/19 04/16/19 04/16/19 11:00 11:40 12:00 Temperature 97.9 F Pulse Rate 66 59 Respiratory 19 13 Rate Blood Pressure 140/89 139/77 (mmHg) O2 Sat by Pulse 99 98 Oximetry Oxygen Devices in Use Now: None Exam: Appearance: NAD, sitting comfortably on the chair. Ears/Nose/Mouth/Throat: Clear Oropharnyx, Mucous Membranes Moist Neck: NL Appearance and Movements; NL JVP, Trachea Midline Respiratory: Symmetrical Chest Expansion and Respiratory Effort, Clear to Auscultation Cardiovascular: NL Sounds; No Murmurs; No JVD, RRR, No Edema Abdominal: NL Sounds; No Tenderness; No Distention Extremities: No Edema, right elbow radial artery puncture site clean and no bleeding. Skin: No Rash or Ulcers Neurological: Alert and Oriented x 3 Result Diagrams: 04/16/19 04:40 04/16/19 04:40 Assess/Plan/Problems-Billing Assessment: 73 y/o male with history of HTN, previous HLD,diet controlled DM, presented to ED with acute onset of chest heaviness, found to have type I IA. - Patient Problems (1) NSTEMI (non-ST elevated myocardial infarction) Current Visit: Yes Status: Acute Code(s): I21.4 - NON-ST ELEVATION (NSTEMI) MYOCARDIAL INFARCTION SNOMED Code(s): 16524624 Comment: - T1 IA - cardiac revasculization performed with stenting of mid LAD with a drug eluting stent placed. - elevated trop and twi anterior lead after cath to LAD region, will need to trend cardiac enzyme pm and decide disposition. will transfer to general mace if enzymes trending up. - on DAPT with aspirin and Ticagrelor, will need 1 year - on high intensity statin - increased amlodipine to 5mg - advise patient to avoid tadalafil while on nitro - will follow up with security controls assessor outpatient. (2) HTN (hypertension) Current Visit: Yes Status: Acute Code(s): I10 - ESSENTIAL (PRIMARY) HYPERTENSION SNOMED Code(s): 28030794 Comment: - on propranol and amlodipine now - amlodipine increased - watch bp (3) DVT prophylaxis Current Visit: Yes Status: Acute Code(s): Z29.9 - ENCOUNTER FOR PROPHYLACTIC MEASURES, UNSPECIFIED SNOMED Code(s): 974181622 Comment: - sc Lovenox Status and Disposition: Inpatient Medicine. Attestation Documenting Resident: Heidi Poole Supervising Physician: Daniela Attestation: This service has been performed in part by a resident under the direction of a teaching physician.IDaniela, performed the service, or was physically present during the critical, or hairston portions of the service, furnished by the resident. I participated in the management of the patient.
[2019-04-16 13:40] LABS: Creatine Kinase 61 U/L (10-223)
[2019-04-16 13:45] LABS: CKMB ng/mL 5.6 ng/mL (0.6-6.3)
[2019-04-16 13:59] LABS: Troponin I 0.75 ng/mL (<0.04)
[2019-04-16 17:31] VITALS: BP 158/82
--- NOTE | 2019-04-16 18:31 | DS ---
CC: Dr. Angie Wallace * DISCHARGE SUMMARY: DATE OF ADMISSION: 04/14/19 DATE OF DISCHARGE: 04/16/19 PRIMARY CARE PROVIDER: Dr. Angie Wallace. PRIMARY DIAGNOSES: 1. Moe-[id number] myocardial infarction. 2. Hypertension. SECONDARY DIAGNOSES: 1. Diet-controlled diabetes, now resolved. 2. Benign prostatic hypertrophy. 3. Erectile dysfunction. 4. Remote tobacco use. CONSULTATIONS: Dr. Kumar and Dr. Sampson of Cardiology. PROCEDURES: Cardiac catheterization on 04/15/19 with drug-eluting stent placed to LAD. DISCHARGE MEDICATIONS: 1. Aspirin 81 mg daily. 2. Ticagrelor 90 mg twice a day. 3. Atorvastatin 80 mg daily. 4. Lisinopril 10 mg daily. 5. Amlodipine 5 mg daily. 6. Nitroglycerin tablet 0.4 mg sublingual every 5 minutes as needed for chest pain. 7. Propranolol ER 80 mg daily. 8. Tamsulosin 0.4 mg daily. 9. Alprazolam 0.25 mg as needed for anxiety. 10. Tadalafil 5 mg as needed for erectile dysfunction, do not take concurrently with nitroglycerin. HISTORY OF PRESENT ILLNESS: Mr. Pandya is a 73-year-old male with hypertension, diet-controlled diabetes, BPH and anxiety, who is presenting with chest pain which started on the morning of presentation while the patient was resting. He described it as a cat sitting on his chest. The pain radiated down his right arm and it was scored as a 6/10. The patient reports that the pain lasted for 1 hour and during that hour he did not exert himself, so he is not sure if it was exertional. He denies pleuritic changes or positional changes. While the pain in the chest spontaneously resolved, it did last in the arm until he arrived in the ER. The patient denies history of similar pain or any chest pain. The patient reports he is generally a physically active person and frequently hikes and does brisk walks without experiencing chest pain or dyspnea. He currently denies shortness of breath, paroxysmal nocturnal dyspnea, palpitations, recent syncope, bleeding, or anemia. HOSPITAL COURSE: In the emergency room, the patient was found to have first-degree AV block with new T-wave inversions in the anterior leads when compared to EKG from last year. His troponin was 0.15 and an echo showed normal EF with LAD territory wall motion abnormality, so Cardiology consult was immediately called. The patient was given antiplatelet agents, a statin, beta-hadley and heparin, and gas line servicer was called. The patient was put on schedule for the next day. He remained asymptomatic over his first night of admission and by the next morning the patient underwent a cardiac catheterization. Left anterior descending artery had very mild luminal irregularities in the most proximal area. The mid portion tapered with a hazy 80% lesion between the second and third diagonal branch. Pet Care Technician performed a successful intervention to the mid LAD with a reduction of 80% blockage to less than 5%, DARON 3 flow in the LAD without dissection. Of note, there appeared to be either plaque shift or spasm to the second diagonal branch, which showed very mild improvement with nitroglycerin. The diagonal branch is a small caliber vessel with residual narrowing approximately 70%. Given this finding, there was concern for vasospasm as well. Cardiology recommended aggressive risk factor management with high-dose statins and dual antiplatelets for ideally 1 year. After procedure, the patient remained asymptomatic; however, by the next morning, troponin was repeated and noted to have increased to 1.13 from peak on prior day prior to procedure of 0.52, CK-MB was mildly elevated at 6.7. Throughout day of discharge, the patient continued to deny chest pain, shortness of breath. He was also noted to be ambulating around the floor in the ICU without chest pain or dyspnea or significant changes to his telemetry monitoring. His blood pressures remained mildly elevated, so his amlodipine was increased. Labs by afternoon showed significant decreases in troponin with normalization of CK-MB and the patient was deemed safe for discharge. He was extensively educated to not combine nitroglycerin with his erectile dysfunction medication tadalafil. REVIEW OF SYSTEMS: On the day of discharge, a complete 10-point review of systems was performed and the patient denied all symptoms. PHYSICAL EXAMINATION: Afebrile, heart rate 76, blood pressure 152/94, respiratory rate 12 with oxygen saturation 98% on room air. In general, he is a well-appearing man, sitting in his chair, reading a book, in no acute distress , who is alert and interactive. Neck: No JVD. HEENT: With moist mucous membranes. OP clear. Lungs: Clear to auscultation bilaterally. Heart: Regular rate and rhythm. No murmurs, gallops, or rubs. Abdomen: Soft, nontender, nondistended. Extremities are warm and well perfused without evidence of edema. Skin without rash. Neuro: A and O x3. Strength 5/5 in 4 extremities. CN II through XII intact. PERTINENT STUDIES AND LABS: CBC with hemoglobin mildly decreased to 12.8 thought to be from hemodilution after given fluids BMP with creatinine 0.97, which is normal. Hemoglobin A1c 5.2%. LDL 105, HDL 67, and triglycerides 129. D-dimer on presentation 258. Chest x-ray without active cardiopulmonary disease. Chest CTA without evidence for pulmonary embolism. Ectasia of the ascending thoracic aorta. Findings consistent with old granulomatous disease. Transthoracic echocardiogram with LV cavity size normal, wall thickness mildly increased, systolic function normal with EF 55% to 60%. There is mild to distal left anterior descending coronary territory wall motion abnormality noted. RV cavity size normal with systolic function normal. Ventricular septum with outflow with sigmoid appearance. LA mildly dilated. Mitral valve with mild regurgitation. DISCHARGE PLAN: The patient has an appointment with outpatient production control technologist 4 days after discharge and he should also follow up with his primary care physician for ongoing aggressive cardiac risk factor management. He had significant medication changes this hospitalization. He was started on dual antiplatelet agents with the addition of a high dose statin as well as nitroglycerin to use p.r.n. for anginal chest pain. Given the addition of amlodipine for possible coronary vasospasm, his hydrochlorothiazide was discontinued. He was educated extensively to not mix his tadalafil with nitroglycerin. The patient was given return precautions, which include, but are not limited to recurrence of chest pain or new symptoms of dyspnea, lightheadedness or palpitations. He should eat a healthy diet low in processed foods and resume activity as tolerated and adhere to strict exercise program. DISPOSITION: To home. CONDITION: Good. TIME SPENT: Approximately 60 minutes was spent on discharge of this patient, more than half of which was spent with care coordination at bedside for interview and exam. [id number]/[facility] #: [id number] MAIKEL
[2019-04-17] MEDS ORDERED: amLODIPine TAB* 5 MG PO SCH (09:00)
== END 2019-04-16 17:20 | disposition home or self-care (01) | DRG 247 ==
LOC: ED 13:12 → MEDTELE 17:04 → ICU 04-15 10:46
PROVIDERS: ADMIT Internal Medicine; ATTEND Internal Medicine
PROC: B2111ZZ Fluoroscopy of Multiple Coronary Arteries using Low Osmolar Contrast (ICD-10-PCS; 2019-04-15)
PROC: 027034Z Dilation of Coronary Artery, One Artery with Drug-eluting Intraluminal Device, Percutaneous Approach (ICD-10-PCS; principal; 2019-04-15 08:30)
DX: I21.4 Non-ST elevation (NSTEMI) myocardial infarction (principal); I10 Essential (primary) hypertension; N40.0 Benign prostatic hyperplasia without lower urinary tract symptoms; E11.9 Type 2 diabetes mellitus without complications; F41.9 Anxiety disorder, unspecified; E78.5 Hyperlipidemia, unspecified; R00.0 Tachycardia, unspecified; I44.0 Atrioventricular block, first degree; I25.111 Atherosclerotic heart disease of native coronary artery with angina pectoris with documented spasm; I34.0 Nonrheumatic mitral (valve) insufficiency; I77.819 Aortic ectasia, unspecified site; G43.809 Other migraine, not intractable, without status migrainosus; N52.9 Male erectile dysfunction, unspecified; Z87.891 Personal history of nicotine dependence; Z72.89 Other problems related to lifestyle; Z79.82 Long term (current) use of aspirin; Z79.02 Long term (current) use of antithrombotics/antiplatelets
CPT/HCPCS: 36415; 71045; 71275; 80048; 80053; 80061; 82550; 82553; 83036; 84484; 85025; 85027; 85347; 85379; 85610; 85730; 93005; 93306; 93454; 96374; 99156; 99157; 99202; 99284; A9270-GY; C1725; C1769; C1874; C9600-LD; G0463; J0583; J1644; J1650; J2250; J2270; J3010; Q9967